=== PATIENT | female | born 1935 | race Caucasian/White ===

== ENCOUNTER 2021-03-09 14:08 | Outpatient (REF) | payer MEDICARE, SELFPAY ==
--- NOTE | 2021-03-09 15:36 | MHC.AU.ANR ---
Adult Audiological Evaluation Date of Visit: 03/09/21 Reason for Appointment: Audiological evaluation due to concern for decreased hearing and difficulty understanding speech. Does patient feel they have a hearing loss?: Yes If Yes, Which Ear?: Both Ears When Was Hearing Difficulty First Noticed?: 3-4 years ago Has hearing been tested previously?: No Hearing Handicap Inventory: HHIE SCORE: 24 Based on HHIE score, patient has: Mild to moderate perceived hearing handicap Medical History: Medical History: Diabetes Medical History (Other): Myoclonus Allergies: Levofloxacin, hydromorphone, amoxicillin Medication List: Patient did not have list with her Otoscopy: Right Ear: Occluded with cerumen. Unable to view TM Left Ear: Partially occluded with cerumen Tympanometry: Tympanometry performed due to: To determine if cerumen blockage is fully occluding canal(s) Right Ear: Normal Middle Ear System (Type A) Left Ear: Normal Middle Ear System (Type A) Hearing Evaluation: Transducer(s) Used: Insert Earphones, Bone Conduction Method: Conventional Audiometry Stimuli Used: Pure Tones Right Ear: Description of Hearing: Mild sloping to severe sensorineural hearing loss from 250-8000 Hz. Left Ear: Description of Hearing: Mild sloping to moderately severe sensorineural hearing loss from 250-8000 Hz. Speech Recognition Threshold (SRT): Method Used: Monitored Live Voice Stimuli Used: Spondee Words Right Ear: 40 dBHL Left Ear: 40 dBHL Word Discrimination: Method: Recorded Lists Word Lists Used: NU-6 Right Ear: 80% at 80 dBHL Left Ear: 76% at 80 dBHL Recommendations: Audiological re-evaluation in one year. Trial with amplification is recommended. Medical clearance from a physician is required before fitting. Follow-up with physician for cerumen removal. Patient states that she will be getting on [facility] soon. Advised that she should return for a hearing aid evaluation at that time if she decides she would like to pursue hearing aid use. Diagnosis: Primary Diagnosis: H90.3 Bilateral Sensorineural Hearing Loss Services Performed: Services Performed: Comprehensive Audiological Evaluation (CPT 50344) Tympanometry (CPT 75116) Signature: Provider: Genaro Victor, CCC-A
--- NOTE | 2021-03-09 16:42 | MHC.AU.MED ---
Medical Clearance for Hearing Instrumentation Date: 03/11/21 Patient Name: Latrice Blum Date of : 1935 Referring Provider: Prashanth Chance MD We have seen your patient on 03/11/21 and have determined that they are a candidate for amplification (See accompanying report). Specifically, they would benefit from: Hearing aid use in both ears There is a statute that addresses Medical Evaluation Requirements prior to fitting a patient with a hearing aid. According to [place] statute 265 CMR:6.03(1), (a) General. Except as provided in 265 CMR 6.03(1)(b), a chair shall not sell a hearing aid unless the prospective user has presented to the chair a written statement signed by a licensed physician that states that the patient's hearing loss has been medically evaluated and the patient may be considered a candidate for a hearing aid. The medical evaluation must have taken place within the preceding six months. Please note: Due to the [place] Statute referenced above, we cannot accept a signature other than that of a licensed physician. TELEPHONE COIN BOX COLLECTOR and PA signatures cannot be accepted. I am in agreement with the above recommendation. There is no medical contraindication for hearing instrumentation. Physician Signature Date Physician Name (Printed)
== END 2021-03-09 14:09 | disposition home or self-care (01) ==
LOC: HO.SH 14:08
PROVIDERS: Visit Provider Internal Medicine
DX: H90.3 Sensorineural hearing loss, bilateral (principal)
CPT/HCPCS: 92557; 92567

== ENCOUNTER → 2022-01-14 15:21 | Outpatient (BNVA) | payer MEDICARE, MEDICAID, SELFPAY | PROVIDERS: PCP Internal Medicine; Visit Provider Nurse Practitioner Family | DX: G25.3 Myoclonus (principal); R40.4 Transient alteration of awareness | CPT/HCPCS: 99212 ==

== ENCOUNTER 2022-01-18 00:33 | Outpatient (REF) | payer MEDICARE, MEDICAID, SELFPAY | END 2022-01-18 00:34 | disposition home or self-care (01) | LOC: HO.MMNH2L 00:33 | PROVIDERS: Visit Provider Family Medicine | DX: Z13.89 Encounter for screening for other disorder (principal) ==

== ENCOUNTER 2022-02-10 13:12 | Inpatient (IN) | payer MEDICARE, MEDICAID, SELFPAY ==
[2022-02-10] VITALS (7 sets, daily range): BP systolic 106–133; BP diastolic 43–75; PULSE 78–95; RESP 16–20; TEMP 36.1–36.7; O2SAT 92–98; BMI 26.1; BMI 26.6
--- NOTE | ~2022-02-10 | MR_ITS ---
EXAMINATION: MR BRAIN WITHOUT CONTRAST CLINICAL INFORMATION: Myoclonus. COMPARISON: Head CT 12/15/2019. TECHNIQUE: Multiplanar, multisequence imaging of the brain was performed without intravenous contrast. FINDINGS: There is no acute infarction, hemorrhage, mass, or extra-axial fluid collection. Mild to moderate T2/FLAIR hyperintensity seen in the bilateral cerebral white matter, typical of chronic microangiopathy. The ventricles and sulci are commensurate with mild degree of diffuse brain parenchymal volume loss noted. The major arterial flow voids are preserved at the skull base. There are bilateral lens replacements are the extracranial structures are otherwise within normal limits. MR/MR head/brain wo con IMPRESSION: No acute intracranial abnormality. Background changes of chronic microangiopathy and brain parenchymal volume loss.
--- NOTE | 2022-02-10 14:06 | ECG_ITS ---
Test Reason : ABNORMAL LABS Blood Pressure : / mmHG Vent. Rate : 087 BPM Atrial Rate : 087 BPM P-R Int : 150 ms QRS Dur : 064 ms QT Int : 398 ms P-R-T Axes : 066 043 090 degrees QTc Int : 478 ms Poor data quality Normal sinus rhythm Possible Nonspecific ST and T wave abnormality Abnormal ECG When compared with ECG of 14-DEC-2019 11:18, Nonspecific T wave abnormality, worse in Anterolateral leads Referred By: Jose Barksdale Electronically Signed By:PAUL BARON MD
--- NOTE | 2022-02-10 14:21 | ED_ITS ---
HPI - General Adult General Chief complaint: Recheck/Abnormal Lab/Rx Stated complaint: Dr called ahead needs an IV of magnesium Time Seen by Provider: 02/10/22 13:51 Source: family History of Present Illness HPI narrative: This is a 89-year-old female with history of congestive heart failure, who is on torsemide daily, who also has history of mild clonus and was at this hospital today for an EEG and an MRI. She received a phone call from her primary care ph ysician stating that her magnesium was very low, 0.9 and that she should come to the emergency department to have repleted. Patient has no new acute issues. She has not had any increased shortness of breath, lower extremity swelling, abdominal pain, vomiting, diarrhea. Related Data Home Medications Medication Instructions Recorded Confirmed atorvastatin 20 mg tablet 20 mg PO DAILY 01/14/22 01/14/22 cholecalciferol (vitamin D3) 25 25 mcg PO DAILY 01/14/22 01/14/22 mcg (1,000 unit) tablet clopidogrel 75 mg tablet 75 mg PO DAILY 01/14/22 01/14/22 fluticasone 250 mcg-salmeterol 50 ea INHALATION 01/14/22 01/14/22 mcg/dose blistr powdr for inhalation (Advair Diskus) gabapentin 300 mg capsule 300 mg PO TID 01/14/22 01/14/22 isosorbide mononitrate 30 mg 60 mg PO BID tab 01/14/22 01/14/22 tablet,extended release 24 hr omeprazole 40 mg capsule,delayed 40 mg PO DAILY 01/14/22 01/14/22 release oxybutynin chloride 5 mg 5 mg PO DAILY 01/14/22 01/14/22 tablet,extended release 24 hr torsemide 20 mg tablet 20 mg PO BID 01/14/22 01/14/22 Previous Rx's Medication Instructions Recorded alprazolam 0.25 mg tablet (Xanax) 0.25 mg PO BID PRN 1 Days #2 tab 01/14/22 Allergies Allergy/AdvReac Type Severity Reaction Status Date / Time levofloxacin [From LEVAQUIN] Allergy Intermediate RASH/DIARRH Verified 02/10/22 13:52 EA cephalexin Allergy Unknown Verified 02/10/22 13:52 hydromorphone [From DILAUDID] AdvReac Severe CONFUSION/H Verified 02/10/22 13:52 ALLUCINATIO NS amoxicillin [AMOXICILLIN] AdvReac Unknown DIARRHEA Verified 02/10/22 13:52 Review of Systems Review of Systems: Yes all other systems are reviewed and are negative Constitutional: Constitutional: Reports as per HPI and Denies fever(s) Eyes: Eyes: Reports as per HPI and Reports no additional eye complaints ENT: Reports system reviewed and no additional complaints, except as documented, Reports as per HPI, Denies nasal congestion, Denies nasal discharge and Denies sore throat Cardiovascular: Cardiovascular: Reports as per HPI, Denies chest pain and Denies dyspnea Respiratory: Respiratory: Reports as per HPI, Denies cough and Denies dyspnea Gastrointestinal: Gastrointestinal: Reports as per HPI, Denies abdominal pain, Denies diarrhea and Denies vomiting Musculoskeletal: Musculoskeletal: Reports no additional musculoskeletal complaints and Denies numbness Integumentary/Breasts: Skin/Breast: Reports as per HPI and Denies rash Neurologic: Reports as per HPI, Denies focal weakness and Denies numbness Comments: Mild clonus, some tightness and spasming in the neck bilaterally, per the daughter Psychiatric: Psychiatric: Reports no additional psychiatric complaints and Reports as per HPI Endocrine: Endocrine: Reports no additional endocrine complaints and Reports as per HPI Hematologic/Lymphatic: Hematologic/Lymphatic: Reports no additional hematologic/lymphatic complaints, Reports as per HPI and Reports other (No peripheral edema) [facility] Past Medical History Medical History (Updated 02/10/22 @ 16:13 by Jose Barksdale MD) CHF (congestive heart failure) COPD (chronic obstructive pulmonary disease) Diabetes Kidney disease Myoclonia PAD (peripheral artery disease) Social History Social History (Updated 01/14/22 @ 15:38 by Julieta Dacosta) Alcohol intake: never Patient Tobacco Use Status: Never used Tobacco Advance Directives: No Advance Directives Information Provided: No Physical Exam ED Vital Signs: Vital Signs - 24 hr 02/10/22 13:46 02/10/22 14:01 Temperature 97 F 97.8 F Pulse Rate 90 95 Respiratory Rate 18 16 Blood Pressure 106/75 125/47 L Pulse Oximetry 98 95 BMI result Body Mass Index 26.1 Medical Decision Making MDM Narrative Medical decision making narrative: Patient with history of CHF, on diuretic, was told those severely low magnesium and advised to come to the emergency department today. Magnesium is 0.8. Patient was started on magnesium 2 g IV and will need further repletion in the hospital over the next day or so. Dr. Bethea of the hospitalist service is to admit the patient. Creatinine and potassium normal. Lab Data Lab results reviewed: Yes I reviewed the patient's lab results. Result diagrams: 02/10/22 14:32 02/10/22 14:33 Labs: Lab Results 02/10/22 02/10/22 Range/Units 14:32 14:33 WBC 7.3 (4.8-10.8) X10*3/uL RBC 3.25 L (4.20-5.50) X10*6/uL Hgb 9.6 L (12.0-16.0) g/dl Hct 31.1 L (37.0-47.0) % MCV 95.7 (80.0-98.0) fL MCH 29.5 (27.0-33.0) pg MCHC 30.9 L (31.0-35.0) g/dl RDW 14.4 (11.0-16.0) % Plt Count 213 (160-400) X10*3/uL MPV 9.0 L (9.4-12.3) fL Immature Gran % (Auto) 0.4 (0.0-0.4) % Neut % (Auto) 50.5 (45-73) % Lymph % (Auto) 38.6 (20-40) % Mills % (Auto) 6.6 (2-11) % Eos % (Auto) 3.3 (0-4) % Baso % (Auto) 0.6 (0-2) % Lymph # (Auto) 2.8 (1.2-4.9) X10*3/uL Mills # (Auto) 0.5 (0.1-1.2) X10*3/uL Eos # (Auto) 0.2 (0.0-0.4) X10*3/uL Baso # (Auto) 0.0 (0.0-0.2) X10*3/uL Abs Immat Gran (auto) 0.03 (0.00-0.03) X10*3/uL Absolute Neuts (auto) 3.7 (2.0-8.3) x10*3/uL Absolute Nucleated RBC 0.000 (0.0-0.012) X10*3/uL Nucleated RBC % (auto) 0.0 (0.0-0.2) /100WBC Sodium 142 (135-145) mmol/L Potassium 3.7 (3.3-5.1) mmol/L Chloride 103 (96-108) mmol/L Carbon Dioxide 26 (22-29) mmol/L Anion Gap 17 (12-20) BUN 20 H (9-16) mg/dL Creatinine 1.38 (0.5-1.4) mg/dL Estim Creat Clear Calc 29.4 Estimated GFR 36 Random Glucose 108 (60-115) mg/dL Calcium 7.2 L D (8.4-10.2) mg/dL Magnesium 0.8 L* (1.6-2.6) mg/dL Total Bilirubin 0.2 (0.0-1.0) mg/dL AST 15 D (5-31) U/L ALT 10 (0-31) U/L Alkaline Phosphatase 76 (39-117) U/L Total Protein 6.6 (6.5-8.0) g/dL Albumin 3.7 (3.5-5.0) g/dL ECG Data Attestation: I personally reviewed and interpreted this ECG as follows: Interpretation: Sinus rhythm with a rate of 87. Baseline artifact due to patient's tremor. Normal QRS axis. EKG difficult to interpret due to artifact. Discharge Plan Discharge Clinical Impression: Hypomagnesemia Patient Disposition: Admitted as Observation
[2022-02-10 14:36] LABS: MANUAL DIFF FLAG NO
[2022-02-10 14:39] LABS: Basophils Percent Auto 0.6 % (0-2); Eosinophils Absolute Auto 0.2 X10*3/uL (0.0-0.4); Eosinophils Percent Auto 3.3 % (0-4); Hematocrit 31.1 % (37.0-47.0); Hemoglobin 9.6 g/dl (12.0-16.0); Imm Gran Abs Auto 0.03 X10*3/uL (0.00-0.03); Imm Gran Pct Auto 0.4 % (0.0-0.4); Lymphocytes Absolute Auto 2.8 X10*3/uL (1.2-4.9); Lymphocytes Percent Auto 38.6 % (20-40); Mean Corpuscular HGB Conc 30.9 g/dl (31.0-35.0); Mean Corpuscular Hemoglobin 29.5 pg (27.0-33.0); Mean Corpuscular Volume 95.7 fL (80.0-98.0); Monocytes Absolute Auto 0.5 X10*3/uL (0.1-1.2); Monocytes Percent Auto 6.6 % (2-11); Neutrophils Absolute Auto 3.7 x10*3/uL (2.0-8.3); Neutrophils Percent Auto 50.5 % (45-73); Platelet Count 213 X10*3/uL (160-400); Red Blood Count 3.25 X10*6/uL (4.20-5.50); Red Cell Distribution Width 14.4 % (11.0-16.0); White Blood Count 7.3 X10*3/uL (4.8-10.8)
[2022-02-10 15:01] LABS: Alanine Aminotransferase 10 U/L (0-31); Albumin Level 3.7 g/dL (3.5-5.0); Alkaline Phosphatase 76 U/L (39-117); Anion Gap 17 (12-20); Aspartate Amino Transferase 15 U/L (5-31); Bilirubin Total 0.2 mg/dL (0.0-1.0); Blood Urea Nitrogen 20 mg/dL (9-16); Calcium 7.2 mg/dL (8.4-10.2); Carbon Dioxide 26 mmol/L (22-29); Chloride 103 mmol/L (96-108); Creatinine Clr Calc Pharmacy 29.4; Estimated Glomerular Filt Rate 36; Glucose Random 108 mg/dL (60-115); Magnesium 0.8 mg/dL (1.6-2.6); Potassium 3.7 mmol/L (3.3-5.1); Sodium 142 mmol/L (135-145); Total Protein 6.6 g/dL (6.5-8.0)
[2022-02-10] MEDS: Magnesium Sulfate/H2O 2 GM/50 ML PIGGYBACK IV ×2 (15:06→22:21)
--- NOTE | 2022-02-10 16:31 | PC.NURSE ---
PATIENT WAS ASSISTED ONTO BEDSIDE COMMODE BY THIS PCT ,PATIENT VOIDED LARGE AMOUNT OF URINE .
--- NOTE | 2022-02-10 16:36 | P.HPHOSP_ITS ---
History of Present Illness Date of Service: 02/10/22 Chief Complaint: Low magnesium 86-year-old female with history of congestive heart failure, who is on torsemide daily, who also has history of myoclonus was seen by Neurology ;EEG/MRI ordered for today along with routine labs.? She received a phone call from her primary care physician stating that her magnesium was low, 0.8 ; told to go to ER for repletion. Patient has no new acute issues.? She has not had any increased shortness of breath, lower extremity swelling, abdominal pain, vomiting, diarrhea. In the emergency room, she received 2 g of magnesium and admission was requested Review of Systems Review of Systems: Denies chest pain Denies shortness of breath Denies nausea vomiting diarrhea Denies fever chills [facility] Medical History (Updated 02/10/22 @ 16:43 by Yaya Bethea DO) CHF (congestive heart failure) COPD (chronic obstructive pulmonary disease) Diabetes Kidney disease Myoclonia PAD (peripheral artery disease) Social History Alcohol intake: never Patient Tobacco Use Status: Never used Tobacco Advance Directives: No Advance Directives Information Provided: No Meds Allergies Allergy/AdvReac Type Severity Reaction Status Date / Time levofloxacin [From LEVAQUIN] Allergy Intermediate RASH/DIARRH Verified 02/10/22 13:52 EA cephalexin Allergy Unknown Verified 02/10/22 13:52 hydromorphone [From DILAUDID] AdvReac Severe CONFUSION/H Verified 02/10/22 13:52 ALLUCINATIO NS amoxicillin [AMOXICILLIN] AdvReac Unknown DIARRHEA Verified 02/10/22 13:52 Active Medications: Current Medications Sodium Chloride (0.9 % Sodium Chloride Flush 3 Ml Syringe) [facility] Home Medications Medication Instructions Recorded Confirmed Last Taken Type atorvastatin 20 mg tablet 20 mg PO DAILY 01/14/22 01/14/22 Unknown History cholecalciferol (vitamin D3) 25 25 mcg PO DAILY 01/14/22 01/14/22 Unknown History mcg (1,000 unit) tablet clopidogrel 75 mg tablet 75 mg PO DAILY 01/14/22 01/14/22 Unknown History fluticasone 250 mcg-salmeterol 50 ea INHALATION 01/14/22 01/14/22 Unknown History mcg/dose blistr powdr for inhalation (Advair Diskus) gabapentin 300 mg capsule 300 mg PO TID 01/14/22 01/14/22 Unknown History isosorbide mononitrate 30 mg 60 mg PO BID tab 01/14/22 01/14/22 Unknown History tablet,extended release 24 hr omeprazole 40 mg capsule,delayed 40 mg PO DAILY 01/14/22 01/14/22 Unknown History release oxybutynin chloride 5 mg 5 mg PO DAILY 01/14/22 01/14/22 Unknown History tablet,extended release 24 hr torsemide 20 mg tablet 20 mg PO BID 01/14/22 01/14/22 Unknown History Physical Exam Vital Signs and Narrative: Vital Signs: Last Vital Signs Temp 98.0 F 02/10/22 16:01 Pulse 78 02/10/22 16:01 Resp 20 02/10/22 16:01 BP 113/47 L 02/10/22 16:01 Pulse Ox 96 02/10/22 16:01 BMI result Body Mass Index 26.1 Const: Other: Awake alert oriented x3 no acute distress Resp: Other: Clear to auscultation bilateral no rales rhonchi or wheezes Cardio: Other: No S4; positive S1-S2; no S3 murmurs rubs or gallops GI: Other: Soft nontender nondistended with normoactive bowel sounds Neuro: Other: Cranial nerves 2-12 grossly intact as tested motor is 5/5 all extremities sensation is intact. Myoclonic jerks are noted with attempted movement Extrem: Other: No edema bilaterally Results Labs CBC and Chem 7: 02/10/22 14:32 02/10/22 14:33 Labs: Laboratory Results - last 24 hr 02/10/22 02/10/22 14:32 14:33 MCV 95.7 MCH 29.5 MCHC 30.9 L RDW 14.4 Plt Count 213 MPV 9.0 L Immature Gran % (Auto) 0.4 Neut % (Auto) 50.5 Lymph % (Auto) 38.6 Pender % (Auto) 6.6 Eos % (Auto) 3.3 Baso % (Auto) 0.6 Lymph # (Auto) 2.8 Pender # (Auto) 0.5 Eos # (Auto) 0.2 Baso # (Auto) 0.0 Abs Immat Gran (auto) 0.03 Absolute Neuts (auto) 3.7 Absolute Nucleated RBC 0.000 Nucleated RBC % (auto) 0.0 Anion Gap 17 Estim Creat Clear Calc 29.4 Estimated GFR 36 Random Glucose 108 Calcium 7.2 L D Magnesium 0.8 L* Total Bilirubin 0.2 AST 15 D ALT 10 Alkaline Phosphatase 76 Total Protein 6.6 Albumin 3.7 Assessment and Plan (1) Myoclonus: Status: Acute (2) Hypomagnesemia: Status: Acute (3) COPD (chronic obstructive pulmonary disease): Status: Acute (4) Diabetes: Status: Acute Plan 86-year-old female with known history of myoclonus was undergoing workup as out lined by Neurology which included blood work, EEG, MRI. Was called by PCP this a.m. for low magnesium. In the emergency room found to have magnesium 0.8 for which she was given 2 g of magnesium. She will be admitted for further magnesium repletion and complete her workup with MRI and EEG in a.m.. 1. 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 Will repeat magnesium level likely will need additional doses of magnesium to become therapeutic -will order EEG/MRI of brain in a.m. -consult Dr. Sousa (neurology) -observe on telemetry 2. COPD -no acute issues at this time -will continue outpatient inhalers -p.r.n. DuoNebs for exacerbation 3.DMII -diet controlled per pt -Lispro correctional scale TID-AC /HS 4. CHF(by HX) -continue outpatient regimen -asymptomatic at this time 5. PAD -continue Plavix Full code Compression boots Will likely require 1-2 midnights going forward for adequate IV magnesium repletion. This cannot be done in a less acute setting Quality Stroke Does the patient have a stroke diagnosis?: No VTE Prior VTE?: No VTE Risk Level:: Medical - moderate - high VTE Device Contraindication: Treatment Not Indicated VTE Drug Contraindication: N/A - Med Ordered
[2022-02-10 16:54] LABS: COVID-19 Test Negative (Negative)
--- NOTE | 2022-02-10 17:23 | MHC.CM.PN ---
IMM 02/10. HCP on file. HCP/daughter Maddie Del Cid ([phone]). A&Ox3. Lives in assisted living at [facility] in [place]. Pt states she has her meals and the nurse gives her her medications. Pt uses a wheelchair and a walker. Pt daughter sets up medication boxes and provides transportation to doctors visits. Pt is very happy living at [facility]. Vax x2 and Boosted x1. Pt unsure of sub master. D/C plan: return to [facility]. Family to provide transportation. CM to follow for d/c needs.
--- NOTE | 2022-02-10 18:02 | PHA.MEDREC ---
Pharmacy Consult ? Medication Reconciliation Pharmacy has completed the medication reconciliation.
--- NOTE | 2022-02-10 18:26 | PC.NURSE ---
report called [facility], was told that they are ready for pt, but the room needs to be cleaned, awaiting call back to send pt to floor.
[2022-02-10 19:25] LABS: Glucose, Whole Blood 106 mg/dL (60-115)
[2022-02-10] MEDS: LORazepam 2 MG/ML VIAL 0.5 MG IVPUSH (19:29)
--- NOTE | 2022-02-10 19:30 | PC.NURSE ---
was being assisted to the bedside commode with obstetrical tech, pt became aphasic, and began babbling, obstetrical tech brought this to my attention, hospitalist sanjuanita, pt was agitated and restless, speaking nonsense, unable to be reoriented, able to move all 4 extremities, no facial asymmetry, sr. payroll processor strength strong and equal. after a couple of minutes, pt able to speak again. when pt regained ability to speak she stated its her myoclonus. ativan IVP ordered. pt stable at this time
[2022-02-10 20:43] LABS: Magnesium 1.4 mg/dL (1.6-2.6)
[2022-02-10 22:06] LABS: Glucose, Whole Blood 100 mg/dL (60-115)
[2022-02-10] MEDS: 0.9 % Sodium Chloride Flush 3 ML SYRINGE IVFLUSH (22:21)
[2022-02-11 03:44] VITALS: BP 110/55; PULSE 95; RESP 18; TEMP 36.1; O2SAT 95
[2022-02-11 06:12] LABS: MANUAL DIFF FLAG NO
[2022-02-11 06:28] LABS: Basophils Percent Auto 0.4 % (0-2); Eosinophils Absolute Auto 0.3 X10*3/uL (0.0-0.4); Eosinophils Percent Auto 3.4 % (0-4); Hematocrit 31.6 % (37.0-47.0); Hemoglobin 9.9 g/dl (12.0-16.0); Imm Gran Abs Auto 0.02 X10*3/uL (0.00-0.03); Imm Gran Pct Auto 0.2 % (0.0-0.4); Lymphocytes Absolute Auto 2.2 X10*3/uL (1.2-4.9); Lymphocytes Percent Auto 26.2 % (20-40); Mean Corpuscular HGB Conc 31.3 g/dl (31.0-35.0); Mean Corpuscular Hemoglobin 29.2 pg (27.0-33.0); Mean Corpuscular Volume 93.2 fL (80.0-98.0); Mean Platelet Volume 9.5 fL (9.4-12.3); Monocytes Absolute Auto 0.6 X10*3/uL (0.1-1.2); Neutrophils Absolute Auto 5.2 x10*3/uL (2.0-8.3); Neutrophils Percent Auto 62.8 % (45-73); Platelet Count 221 X10*3/uL (160-400); Red Blood Count 3.39 X10*6/uL (4.20-5.50); Red Cell Distribution Width 14.4 % (11.0-16.0); White Blood Count 8.2 X10*3/uL (4.8-10.8)
[2022-02-11 06:50] LABS: Alanine Aminotransferase 10 U/L (0-31); Albumin Level 3.6 g/dL (3.5-5.0); Alkaline Phosphatase 73 U/L (39-117); Anion Gap 16 (12-20); Aspartate Amino Transferase 13 U/L (5-31); Bilirubin Total < 0.2 mg/dL (0.0-1.0); Blood Urea Nitrogen 19 mg/dL (9-16); Calcium 7.9 mg/dL (8.4-10.2); Carbon Dioxide 27 mmol/L (22-29); Chloride 104 mmol/L (96-108); Creatinine Clr Calc Pharmacy 41.1; Estimated Glomerular Filt Rate 53; Glucose Fasting 98 mg/dL (60-99); Magnesium 1.9 mg/dL (1.6-2.6); Sodium 143 mmol/L (135-145); Total Protein 6.5 g/dL (6.5-8.0)
[2022-02-11 07:24] VITALS: BP 137/63; PULSE 99; RESP 17; TEMP 35.9; O2SAT 91
--- NOTE | 2022-02-11 08:00 | EEG_ITS ---
This is a 16-channel EEG with an EKG lead. The patient is reported awake during the tracing. Background EEG rhythm is mixed theta beta, low to medium amplitude with no obvious asymmetry or paroxysmal tendency. Occasional right hemispheric theta range slowing was noted. No definite sharp waves or spikes were noted. Cardiac lead did not reveal any significant abnormality. Photic stimulation did not produce any significant driving. Hyperventilation was not performed. IMPRESSION: Mild generalized slowing with no evidence of seizure disorder. MD KRZYSZTOF Osborne/CE / [id number]
[2022-02-11 08:36] LABS: Glucose, Whole Blood 99 mg/dL (60-115)
[2022-02-11] MEDS: Cholecalciferol (Vitamin D3) 25 MCG TABLET PO (09:28)
[2022-02-11] MEDS: Isosorbide Mononitrate 60 MG TAB.ER.24H PO (09:28)
[2022-02-11] MEDS: Gabapentin 300 MG CAPSULE PO ×2 (09:29→22:30)
[2022-02-11] MEDS: Torsemide 20 MG TABLET PO (09:29)
[2022-02-11] MEDS: Clopidogrel Bisulfate 75 MG TABLET PO (09:29)
[2022-02-11] MEDS: Cyanocobalamin (Vitamin B-12) 1,000 MCG TABLET 1000 MCG PO (09:29)
--- NOTE | 2022-02-11 10:10 | HE.PHANOTE ---
Messaged MARC Truong to see if the patients family could bring in her non-formulary medication from home.
[2022-02-11] MEDS: ALPRAZolam 0.25 MG TABLET PO (10:17)
[2022-02-11] MEDS: 0.9 % Sodium Chloride Flush 3 ML SYRINGE IVFLUSH (10:28)
[2022-02-11 11:52] VITALS: PULSE 99; RESP 18; O2SAT 91
[2022-02-11] MEDS: Fluticasone/Vilanterol 100/25 BLST.W.DEV 1 PUFF INHALE (11:52)
[2022-02-11 15:19] VITALS: BP 138/62; PULSE 103; RESP 19; TEMP 36.8; O2SAT 92
--- NOTE | 2022-02-11 16:06 | HO.PM.IMPN ---
Subjective Subjective Date of Service: 02/11/22 Interval History: No acute issues overnight. Underwent MRI and EEG without event this morning Review of Systems Denies chest pain Denies shortness of breath Denies nausea vomiting diarrhea Denies fever chills Physical Exam Vital Signs: Vital Signs: Last Vital Signs Temp 98.2 F 02/11/22 15:19 Pulse 103 H 02/11/22 15:19 Resp 19 02/11/22 15:19 BP 138/62 02/11/22 15:19 Pulse Ox 92 02/11/22 15:19 BMI result Body Mass Index 26.6 Const: Other: Awake alert oriented x3 no acute distress Resp: Other: Clear to auscultation bilateral no rales rhonchi or wheezes Cardio: Other: No S4; positive S1-S2; no S3 murmurs rubs or gallops GI: Other: Soft nontender nondistended with normoactive bowel sounds Neuro: Other: Cranial nerves 2-12 grossly intact as tested motor is 5/5 all extremities sensation is intact. Myoclonic jerks are noted with attempted movement Extrem: Other: No edema bilaterally Objective Data Active Medications Albuterol Sulfate (Albuterol Sulfate 90 Mcg 8 Gm Inhaler) 2 puff INHALE Q6H PRN PRN Reason: wheezing Aspirin (Aspirin Enteric Coated 81 Mg Tablet.Dr) 81 mg PO BEDTIME [facility] Atorvastatin Calcium (Atorvastatin Calcium 20 Mg Tablet) 20 mg PO BEDTIME [facility] Clopidogrel Bisulfate (Clopidogrel Bisulfate 75 Mg Tablet) 75 mg PO DAILY [facility] Last Admin: 02/11/22 09:29 Dose: 75 mg Documented by: DEANDRA Cyanocobalamin (Cyanocobalamin (Vitamin B-12) 1,000 Mcg Tablet) 1,000 mcg PO DAILY [facility] Last Admin: 02/11/22 09:29 Dose: 1,000 mcg Documented by: DEANDRA Fluticasone/Vilanterol (Fluticasone/Vilanterol 100/25 Blst.W.Dev) 1 puff INHALE DAILY [facility] Last Admin: 02/11/22 11:52 Dose: 1 puff Documented by: MISSY Gabapentin (Gabapentin 300 Mg Capsule) 300 mg PO TID [facility] Last Admin: 02/11/22 15:56 Dose: Not Given Documented by: DEANDRA Non-Admin Reason: Patient Asleep Insulin Human Lispro (Insulin Lispro 100 Unit/Ml 3 Ml Vial) 0 unit SUBCUT QIDACHS [facility]; Protocol Last Admin: 02/11/22 15:56 Dose: Not Given Documented by: DEANDRA Non-Admin Reason: Patient Refused Isosorbide Mononitrate (Isosorbide Mononitrate 60 Mg Tab.Er.24h) 60 mg PO DAILY [facility]; Protocol Last Admin: 02/11/22 09:28 Dose: 60 mg Documented by: DEANDRA Patient Own Medication ( Colestipol 1 Gm Tablet) 1 each PO BEDTIME [facility] Patient Own Medication ( Colestipol 1 Gram Tablet) 2 each PO DAILY@0800 [facility] Omeprazole (Omeprazole 40 Mg Capsule.Dr) 40 mg PO DAILY@0630 [facility] Last Admin: 02/11/22 10:28 Dose: Not Given Documented by: DEANDRA Non-Admin Reason: Med Not Available Oxybutynin Chloride (Oxybutynin Chloride Er 5 Mg Tab.Er.24) 5 mg PO BEDTIME [facility] Sodium Chloride (0.9 % Sodium Chloride Flush 3 Ml Syringe) 3 ml IVFLUSH QSHIFT [facility] Last Admin: 02/11/22 10:28 Dose: 3 ml Documented by: DEANDRA Torsemide (Torsemide 20 Mg Tablet) 20 mg PO DAILY [facility]; Protocol Last Admin: 02/11/22 09:29 Dose: 20 mg Documented by: DEANDRA Vitamin D (Cholecalciferol (Vitamin D3) 25 Mcg Tablet) 25 mcg PO DAILY [facility] Last Admin: 02/11/22 09:28 Dose: 25 mcg Documented by: DEANDRA Labs CBC & Chem 7: 02/11/22 06:01 02/11/22 06:01 Labs: Laboratory Results - last 24 hr 02/10/22 02/10/22 02/10/22 16:34 19:16 19:48 MCV MCH MCHC RDW Plt Count MPV Immature Gran % (Auto) Neut % (Auto) Lymph % (Auto) [place] % (Auto) Eos % (Auto) Baso % (Auto) Lymph # (Auto) [place] # (Auto) Eos # (Auto) Baso # (Auto) Abs Immat Gran (auto) Absolute Neuts (auto) Absolute Nucleated RBC Nucleated RBC % (auto) Anion Gap Estim Creat Clear Calc Estimated GFR POC Glucose 106 Fasting Glucose Calcium Magnesium 1.4 L* Total Bilirubin AST ALT Alkaline Phosphatase Total Protein Albumin COVID-19 (CONNIE) Negative COVID-19 Clin Com See Note 02/10/22 02/11/22 02/11/22 21:57 06:01 06:01 MCV 93.2 MCH 29.2 MCHC 31.3 RDW 14.4 Plt Count 221 MPV 9.5 Immature Gran % (Auto) 0.2 Neut % (Auto) 62.8 Lymph % (Auto) 26.2 [place] % (Auto) 7.0 Eos % (Auto) 3.4 Baso % (Auto) 0.4 Lymph # (Auto) 2.2 [place] # (Auto) 0.6 Eos # (Auto) 0.3 Baso # (Auto) 0.0 Abs Immat Gran (auto) 0.02 Absolute Neuts (auto) 5.2 Absolute Nucleated RBC 0.000 Nucleated RBC % (auto) 0.0 Anion Gap 16 Estim Creat Clear Calc 41.1 Estimated GFR 53 POC Glucose 100 Fasting Glucose 98 Calcium 7.9 L D Magnesium 1.9 Total Bilirubin < 0.2 AST 13 ALT 10 Alkaline Phosphatase 73 Total Protein 6.5 Albumin 3.6 COVID-19 (CONNIE) COVID-19 Clin Com 02/11/22 08:32 MCV MCH MCHC RDW Plt Count MPV Immature Gran % (Auto) Neut % (Auto) Lymph % (Auto) [place] % (Auto) Eos % (Auto) Baso % (Auto) Lymph # (Auto) [place] # (Auto) Eos # (Auto) Baso # (Auto) Abs Immat Gran (auto) Absolute Neuts (auto) Absolute Nucleated RBC Nucleated RBC % (auto) Anion Gap Estim Creat Clear Calc Estimated GFR POC Glucose 99 Fasting Glucose Calcium Magnesium Total Bilirubin AST ALT Alkaline Phosphatase Total Protein Albumin COVID-19 (CONNIE) COVID-19 Clin Com Assessment and Plan (1) Myoclonus: Status: Acute (2) COPD (chronic obstructive pulmonary disease): Status: Acute (3) Diabetes: Status: Acute Plan 86-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 Was called by PCP this a.m. for low magnesium. In the emergency room found to have magnesium 0.8 for which she was given 2 g of magnesium. She will be admitted for further magnesium repletion and complete her workup with MRI and EEG in a.m.. 1. 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 Will repeat magnesium level likely will need additional doses of magnesium to become therapeutic -testing complete. Will give additional dose of magnesium IV tonight repeat level in a.m. -plan for discharge early 2. COPD -no acute issues at this time -will continue outpatient inhalers -p.r.n. DuoNebs for exacerbation 3.DMII -diet controlled per pt -Lispro correctional scale TID-AC /HS 4. CHF(by HX) -continue outpatient regimen -asymptomatic at this time 5. PAD -continue Plavix Full code Compression boots Will likely require 1-2 midnights going forward for adequate IV magnesium repletion. This cannot be done in a less acute setting Quality Stroke Does the patient have a stroke diagnosis?: No VTE Prior VTE?: No VTE Risk Level:: Medical - moderate - high VTE Device Contraindication: Treatment Not Indicated VTE Drug Contraindication: N/A - Med Ordered
[2022-02-11 18:58] VITALS: BP 118/47; PULSE 100; RESP 20; TEMP 36.7; O2SAT 95
[2022-02-11] MEDS: Magnesium Sulfate/H2O 2 GM/50 ML PIGGYBACK IV (21:05)
[2022-02-11] MEDS: Atorvastatin Calcium 20 MG TABLET PO (22:29)
[2022-02-11] MEDS: Aspirin Enteric Coated 81 MG TABLET.DR PO (22:30)
[2022-02-11 23:42] VITALS: BP 156/62; PULSE 92; RESP 18; TEMP 36.4; O2SAT 90
[2022-02-12] MEDS: 0.9 % Sodium Chloride Flush 3 ML SYRINGE IVFLUSH ×2 (00:41→10:19)
[2022-02-12 03:56] VITALS: BP 112/59; PULSE 87; RESP 20; TEMP 36.2; O2SAT 92
[2022-02-12] MEDS: Omeprazole 40 MG CAPSULE.DR PO (05:45)
[2022-02-12 06:28] LABS: MANUAL DIFF FLAG NO
[2022-02-12 06:38] LABS: Basophils Percent Auto 0.5 % (0-2); Eosinophils Absolute Auto 0.2 X10*3/uL (0.0-0.4); Eosinophils Percent Auto 3.2 % (0-4); Hematocrit 30.5 % (37.0-47.0); Hemoglobin 9.3 g/dl (12.0-16.0); Imm Gran Abs Auto 0.02 X10*3/uL (0.00-0.03); Imm Gran Pct Auto 0.3 % (0.0-0.4); Lymphocytes Absolute Auto 2.6 X10*3/uL (1.2-4.9); Lymphocytes Percent Auto 33.7 % (20-40); Mean Corpuscular HGB Conc 30.5 g/dl (31.0-35.0); Mean Corpuscular Hemoglobin 29.1 pg (27.0-33.0); Mean Corpuscular Volume 95.3 fL (80.0-98.0); Mean Platelet Volume 9.6 fL (9.4-12.3); Monocytes Absolute Auto 0.6 X10*3/uL (0.1-1.2); Monocytes Percent Auto 8.2 % (2-11); Neutrophils Absolute Auto 4.1 x10*3/uL (2.0-8.3); Neutrophils Percent Auto 54.1 % (45-73); Platelet Count 215 X10*3/uL (160-400); Red Cell Distribution Width 14.5 % (11.0-16.0); White Blood Count 7.6 X10*3/uL (4.8-10.8)
[2022-02-12 07:31] LABS: Alanine Aminotransferase 9 U/L (0-31); Albumin Level 3.4 g/dL (3.5-5.0); Alkaline Phosphatase 72 U/L (39-117); Anion Gap 11 (12-20); Aspartate Amino Transferase 11 U/L (5-31); Bilirubin Total 0.4 mg/dL (0.0-1.0); Blood Urea Nitrogen 16 mg/dL (9-16); Calcium 8.5 mg/dL (8.4-10.2); Carbon Dioxide 31 mmol/L (22-29); Chloride 103 mmol/L (96-108); Creatinine Clr Calc Pharmacy 41.1; Estimated Glomerular Filt Rate 53; Glucose Fasting 104 mg/dL (60-99); Magnesium 2.1 mg/dL (1.6-2.6); Potassium 3.9 mmol/L (3.3-5.1); Sodium 141 mmol/L (135-145); Total Protein 6.1 g/dL (6.5-8.0)
[2022-02-12 07:59] VITALS: BP 173/71; PULSE 77; RESP 20; TEMP 36.3
--- NOTE | 2022-02-12 08:16 | P.DS_ITS ---
DS: Providers Provider Date of Service: 02/12/22 Date of admission: 02/10/22 16:01 Date of discharge: 02/12/22 Primary care physician: Prashanth Chance MD DS: Diagnosis Discharge Diagnosis (1) Myoclonus: Status: Acute (2) COPD (chronic obstructive pulmonary disease): Status: Acute (3) Diabetes: Status: Acute DS: Summary Hospital Course Hospital Course: 86-year-old female with history of congestive heart failure, who is on torsemide daily, who also has history of myoclonus was seen by Neurology ;EEG/MRI ordered for today along with routine labs.? She received a phone call from her primary care physician stating that her magnesium was low, 0.8 ; told to go to ER for repletion.? Patient has no new acute issues.? She has not had any increased shortness of breath, lower extremity swelling, abdominal pain, vomiting, diarrhea. In the emergency room, she received 2 g of magnesium and admission was requested Hospital course She was admitted to telemetry and receive repletion of her IV magnesium. On the morning of the , she underwent EEG and MRI as scheduled as outpatient. MRI failed to demonstrate any acute pathology and her neurological provider was made aware. She he continue to receive magnesium IV and on the day of discharge her magnesium is repleted and she is medically acceptable for discharge home on oral magnesium. She will follow-up with her neurologist and her PCP to monitor these levels going forward Time Spent with Patient Time attestation: Total time spent providing and/or coordinating discharge services: Discharge coordination time: Greater than 30 minutes Quality: Safe Use of Opioids Does Pt have an Active Cancer Diagnosis on the Problem List?: No Quality: Stroke Does the patient have a stroke diagnosis?: No Physical Exam Vital Signs: Vital Signs: Last Vital Signs Temp 97.3 F 02/12/22 07:59 Pulse 77 02/12/22 07:59 Resp 20 02/12/22 07:59 BP 173/71 H 02/12/22 07:59 Pulse Ox 92 02/12/22 03:56 BMI result Body Mass Index 26.6 Const: Other: Awake alert oriented x3 no acute distress Resp: Other: Clear to auscultation bilateral no rales rhonchi or wheezes Cardio: Other: No S4; positive S1-S2; no S3 murmurs rubs or gallops GI: Other: Soft nontender nondistended with normoactive bowel sounds Neuro: Other: Cranial nerves 2-12 grossly intact as tested motor is 5/5 all extremities sensation is intact. Myoclonic jerks are noted with attempted movement Extrem: Other: No edema bilaterally DS: Data Data Completed and Pending Labs on day of discharge: Laboratory Results - last 24 hr 02/11/22 02/12/22 02/12/22 08:32 06:09 06:09 WBC 7.6 RBC 3.20 L Hgb 9.3 L Hct 30.5 L MCV 95.3 MCH 29.1 MCHC 30.5 L RDW 14.5 Plt Count 215 MPV 9.6 Immature Gran % (Auto) 0.3 Neut % (Auto) 54.1 Lymph % (Auto) 33.7 [place] % (Auto) 8.2 Eos % (Auto) 3.2 Baso % (Auto) 0.5 Lymph # (Auto) 2.6 [place] # (Auto) 0.6 Eos # (Auto) 0.2 Baso # (Auto) 0.0 Abs Immat Gran (auto) 0.02 Absolute Neuts (auto) 4.1 Absolute Nucleated RBC 0.000 Nucleated RBC % (auto) 0.0 Sodium 141 Potassium 3.9 Chloride 103 Carbon Dioxide 31 H Anion Gap 11 L BUN 16 Creatinine 1.00 Estim Creat Clear Calc 41.1 Estimated GFR 53 POC Glucose 99 Fasting Glucose 104 H Calcium 8.5 D Magnesium 2.1 Total Bilirubin 0.4 AST 11 ALT 9 Alkaline Phosphatase 72 Total Protein 6.1 L Albumin 3.4 L Discharge Plan Discharge Patient Disposition: Home Health Service Discharge Diagnosis: Hypomagnesemia Referrals: [facility] [Outside] - 1 Week Prashanth Chance MD [Primary Care Provider] - 1 Week Discharge Medications: New magnesium oxide 400 mg magnesium capsule 400 mg PO BID Qty: 30 0RF Continued cyanocobalamin (vitamin B-12) [Vitamin B-12] 1,000 mcg Tablet 1,000 mcg PO DAILY 0RF aspirin 81 mg Tablet,Delayed Release (Dr/Ec) 81 mg PO BEDTIME 0RF isosorbide mononitrate 60 mg tablet extended release 24 hr 1 tab PO DAILY 0RF colestipol 1 gram tablet 2 g PO DAILY 0RF colestipol 1 gram tablet 1 g PO BEDTIME 0RF albuterol sulfate 90 mcg/actuation HFA aerosol inhaler 2 puff PO Q6H PRN (Reason: wheezing) 0RF gabapentin 300 mg capsule 300 mg PO TID 0RF fluticasone propion-salmeterol [Advair Diskus] 250-50 mcg/dose blister with device 1 inh inhalation BID 0RF torsemide 20 mg tablet 20 mg PO DAILY 0RF oxybutynin chloride 5 mg tablet extended release 24hr 5 mg PO BEDTIME 0RF clopidogrel 75 mg tablet 75 mg PO DAILY 0RF atorvastatin 20 mg tablet 20 mg PO BEDTIME 0RF omeprazole 40 mg capsule,delayed release(DR/EC) 40 mg PO DAILY 0RF cholecalciferol (vitamin D3) 25 mcg (1,000 unit) tablet 25 mcg PO DAILY 0RF Discharge Orders: Discharge Order (Routine); Ordered 02/12/22 Ordered By: Yaya Bethea Diet: advance to usual diet Activity on Discharge: As tolerated Stand Alone Forms: Patient Portal Discharge page Care Plan Goals: Follow-up with neurology as scheduled. Call has been placed to update them as to hospitalization Health Concerns: Take magnesium oxide twice a day. Follow-up with her PCP/neurology to monitor levels Plan of Treatment: Continue all current medications Assessment: See discharge summary Discharge Date/Time: 02/12/22 11:30
[2022-02-12 08:33] VITALS: PULSE 105; O2SAT 95
[2022-02-12] MEDS: Fluticasone/Vilanterol 100/25 BLST.W.DEV 1 PUFF INHALE (08:33)
[2022-02-12] MEDS: Clopidogrel Bisulfate 75 MG TABLET PO (10:19)
[2022-02-12] MEDS: Gabapentin 300 MG CAPSULE PO (10:19)
[2022-02-12] MEDS: Isosorbide Mononitrate 60 MG TAB.ER.24H PO (10:19)
[2022-02-12] MEDS: Cyanocobalamin (Vitamin B-12) 1,000 MCG TABLET 1000 MCG PO (10:20)
[2022-02-12] MEDS: Torsemide 20 MG TABLET PO (10:20)
[2022-02-12] MEDS: Cholecalciferol (Vitamin D3) 25 MCG TABLET PO (10:20)
--- NOTE | 2022-02-12 14:42 | W.MHC.F2F ---
Service Date Service Date: 02/12/22 Encounter Date of encounter: 02/12/22 Encounter: Inpatient hospital admission Reasons for Services Signs and symptoms assessed: Severe exacerbation of mild clonus evidenced by uncontrollable jerking movements impeding ambulation Reason for penitentiary: neurological assessment and medication management Reason for physical therapy: home safety and mobility and therapeutic exercises Homebound: Leaving the home is medically contraindicated at this time without the asist of a device and/or another person due th the listed conditions above and below. Reason homebound: unsteady gait / fall risk, leg weakness and poor balance / fall risk Certification: Based on the above findings, I certify that this patient is confined to the home and needs intermittent penitentiary care, physical therapy and/or speech therapy, or continues to need occupational therapy. The patient is under my care, and I have initiated the establishment of the plan of care. The patient will be followed by a physician who will periodically review the plan of care.
== END 2022-02-12 11:30 | disposition home health service (06) | DRG 93 ==
LOC: HO.ED 13:57 → HO.EDOVER 16:09 → HO.IMC 17:36
PROVIDERS: Admitting Provider Hospitalist; Emergency Provider Emergency Medicine; PCP Internal Medicine; Visit Provider Hospitalist
DX: G25.3 Myoclonus (principal); E83.42 Hypomagnesemia; J44.9 Chronic obstructive pulmonary disease, unspecified; N18.9 Chronic kidney disease, unspecified; E11.22 Type 2 diabetes mellitus with diabetic chronic kidney disease; E11.51 Type 2 diabetes mellitus with diabetic peripheral angiopathy without gangrene; Z20.822 Contact with and (suspected) exposure to COVID-19; Z88.0 Allergy status to penicillin; Z88.5 Allergy status to narcotic agent; Z88.1 Allergy status to other antibiotic agents; Z79.51 Long term (current) use of inhaled steroids; Z79.82 Long term (current) use of aspirin; Z79.02 Long term (current) use of antithrombotics/antiplatelets; Z79.899 Other long term (current) drug therapy
CPT/HCPCS: 36415; 70551; 80053; 82947; 83735; 85025; 87635; 93005; 94640; 95816; 96365; 96366; 96375; 99284; 99285; J2060; J3475

== ENCOUNTER → 2022-03-09 14:48 | Outpatient (BNVA) | payer MEDICARE, MEDICAID, SELFPAY | PROVIDERS: PCP Internal Medicine; Visit Provider Psychiatry & Neurology Neurology | DX: R25.9 Unspecified abnormal involuntary movements (principal) | CPT/HCPCS: 99212 ==

== ENCOUNTER → 2022-05-19 13:56 | Outpatient (BNVA) | payer MEDICARE, MEDICAID, SELFPAY | PROVIDERS: Visit Provider Nurse Practitioner Family | DX: R25.9 Unspecified abnormal involuntary movements (principal); R40.4 Transient alteration of awareness | CPT/HCPCS: 99212 ==

== ENCOUNTER → 2022-07-14 14:58 | Outpatient (BNVA) | payer MEDICARE, MEDICAID, SELFPAY | PROVIDERS: Visit Provider Nurse Practitioner Family | DX: R25.9 Unspecified abnormal involuntary movements (principal); R40.4 Transient alteration of awareness | CPT/HCPCS: Q3014 ==